=== PATIENT | male | born 1970 | race African-American/Black ===

== ENCOUNTER 2018-02-06 11:23 | Emergency (ER) | payer MEDICAID ==
[~2018-02-06] VITALS: Ht 188 cm; Wt 149.7 kg
[2018-02-06 11:46] VITALS: BP 130/79
[2018-02-06] MEDS ORDERED: GEODON20 MG ORAL (11:52)
[2018-02-06] MEDS ORDERED: WELLBUTRIN XL150 MG ORAL (11:53)
[2018-02-06] MEDS ORDERED: Aspirin Baby 81mg ORAL ONE (14:00)
[2018-02-06] MEDS ORDERED: Lidocaine 1% Plain 30 ml INJ ONE (14:43)
[2018-02-06] MEDS ORDERED: Lidocaine 1% MPF 10mg/ml 5ml INJ ONE (15:15)
[2018-02-06 15:18] VITALS: BP 133/72
[2018-02-06] MEDS ORDERED: Vancomycin 1 GM in NS 275 ML IVPB ONE (15:30)
[2018-02-06] MEDS ORDERED: Vancomycin 1.5gm/D5W 250ml 250 ML IVPB ONE (15:30)
--- NOTE | 2018-02-06 15:42 | Emergency Room Report ---
History of Present Illness General Chief Complaint: Skin Rash/Abscess Source: Patient, Medical Record Present Illness HPI The patient states that he noticed an area of swelling on his left lower leg. He states that he noted some swelling there about 3 days ago. He states that the area has enlarged. He has had subjective fever and chills. He denies nausea or vomiting. He believes that he was bitten by an insect in this location. He has no other complaints. Allergies: Coded Allergies: No Known Allergies (Unverified , 02/06/18) Patient History Past Medical History: see triage record, HTN Social History: Denies: smoking, alcohol use, drug use Reviewed Nursing Documentation: PMH: Agreed; PSxH: Agreed Nursing Documentation-PMH Past Medical History: No History, Except For Hx Hypertension: Yes Review of Systems All Other Systems: negative except mentioned in HPI Physical Exam Vital Signs Date Time Temp Pulse Resp B/P (MAP) Pulse Ox O2 Delivery O2 Flow Rate FiO2 02/06/18 11:39 99.4 101 18 130/79 95 Room Air 99.3 Sp02 EP Interpretation: reviewed, normal General Appearance: no apparent distress, alert, GCS 15, non-toxic Head: normocephalic, atraumatic Eyes: bilateral eye normal inspection, bilateral eye PERRL ENT: hearing grossly normal, normal pharynx, no angioedema, normal voice Neck: full range of motion, supple/symm/no masses Respiratory: chest non-tender, lungs clear, normal breath sounds, speaking full sentences Cardiovascular #1: no edema, tachycardia Gastrointestinal: normal bowel sounds, non tender, soft, non-distended, no guarding, no rebound Rectal: deferred Musculoskeletal: back normal, gait/station normal, normal range of motion, non- tender Neurologic: alert, oriented x3, responsive, motor strength/tone normal, sensory intact, speech normal Psychiatric: judgement/insight normal, memory normal, mood/affect normal, no suicidal/homicidal ideation Skin: warm/dry, well hydrated, other - Quarter-sized area on LLE with fluctuance. Procedures Incision and Drainage Incision and Drainage : Consent: Verbal Site: LLE Blade Size: 11 I & D Procedure: betadine prep, sterile drapes applied Wound Location: lower extremity Wound Length (cm): 0 Anesthesia: 1% Lidocaine Volume Anesthetic (ccs): 5 Patient Tolerated: Well Complications: None Progress Purulent discharged obtained. Medical Decision Making Diagnostic Impression: Primary Impression: Abscess Additional Impressions: Cellulitis Fever ER Course Patient presented with abscess on his left lower extremity. I did do an incision and drainage and obtain purulent discharge. The patient developed a fever in the emergency department. I felt that given the fever and the infection on the left lower extremity and the patient's severe chronic lymphedema, I'm concerned that this patient could do poorly on outpatient oral antibiotic therapy; Therefore, I felt that this patient should be admitted for IV antibiotics. He is given IV antibiotics here in the emergency department and admitted for further evaluation and treatment. Laboratory Tests Test 02/06/18 15:30 White Blood Count 14.6 K/UL (4.8-10.8) H Red Blood Count 3.80 M/UL (4.70-6.10) L Hemoglobin 9.9 G/DL (14.2-18.0) L Hematocrit 31.1 % (42.0-52.0) L Mean Corpuscular Volume 82 FL (80-99) Mean Corpuscular Hemoglobin 26.1 PG (27.0-31.0) L Mean Corpuscular Hemoglobin Concent 31.9 G/DL (32.0-36.0) L Red Cell Distribution Width 13.3 % (11.6-14.8) Platelet Count 505 K/UL (150-450) H Mean Platelet Volume 6.3 FL (6.5-10.1) L Neutrophils (%) (Auto) 81.2 % (45.0-75.0) H Lymphocytes (%) (Auto) 9.8 % (20.0-45.0) L Monocytes (%) (Auto) 6.5 % (1.0-10.0) Eosinophils (%) (Auto) 0.9 % (0.0-3.0) Basophils (%) (Auto) 1.6 % (0.0-2.0) Sodium Level 136 MMOL/L (136-145) Potassium Level 3.9 MMOL/L (3.5-5.1) Chloride Level 100 MMOL/L (98-107) Carbon Dioxide Level 27 MMOL/L (21-32) Anion Gap 9 mmol/L (5-15) Blood Urea Nitrogen 10 mg/dL (7-18) Creatinine 1.1 MG/DL (0.55-1.30) Estimate Glomerular Filtration Rate > 60 mL/min (>60) Glucose Level 110 MG/DL (74-106) H Lactic Acid Level 1.30 mmol/L (0.4-2.0) Calcium Level 8.1 MG/DL (8.5-10.1) L Total Bilirubin 0.5 MG/DL (0.2-1.0) Aspartate Amino Transferase (AST) 20 U/L (15-37) Alanine Aminotransferase (ALT) 29 U/L (12-78) Alkaline Phosphatase 74 U/L (46-116) Creatine Kinase MB 0.7 NG/ML (0.0-3.6) Total Protein 7.8 G/DL (6.4-8.2) Albumin 2.2 G/DL (3.4-5.0) L Globulin 5.6 g/dL Albumin/Globulin Ratio 0.4 (1.0-2.7) L Last Vital Signs Date Time Temp Pulse Resp B/P (MAP) Pulse Ox O2 Delivery O2 Flow Rate FiO2 02/06/18 11:46 99.3 18 130/79 95 Room Air 99.3 02/06/18 11:39 101 Disposition: XFER SHT-TRM HOSP Condition: Serious Referrals: [facility],REFERR[facility] (PCP) Nadia Beltran DO Feb 06, 2018 15:42
[2018-02-06 16:06] LABS: ANION GAP 9 mmol/L (5-15); BLOOD UREA NITROGEN 10 mg/dL (7-18); CALCIUM 8.1 MG/DL (8.5-10.1); CARBON DIOXIDE 27 MMOL/L (21-32); CHLORIDE 100 MMOL/L (98-107); CREATININE 1.1 MG/DL (0.55-1.30); POTASSIUM 3.9 MMOL/L (3.5-5.1); SODIUM 136 MMOL/L (136-145)
[2018-02-06 16:07] LABS: BASOPHILS % (AUTO) 1.6 % (0.0-2.0); EOSINOPHILS % (AUTO) 0.9 % (0.0-3.0); HEMATOCRIT 31.1 % (42.0-52.0); HEMOGLOBIN 9.9 G/DL (14.2-18.0); LYMPHOCYTES % (AUTO) 9.8 % (20.0-45.0); MEAN CORPUSCULAR VOLUME 82 FL (80-99); MONOCYTES % (AUTO) 6.5 % (1.0-10.0); NEUTROPHILS % (AUTO) 81.2 % (45.0-75.0); PLATELET COUNT 505 K/UL (150-450); RED CELL DISTRIBUTION WIDTH 13.3 % (11.6-14.8); WHITE BLOOD COUNT 14.6 K/UL (4.8-10.8)
[2018-02-06 16:21] LABS: ALANINE AMINOTRANSFERASE 29 U/L (12-78); ALBUMIN 2.2 G/DL (3.4-5.0); ALBUMIN/GLOBULIN RATIO 0.4 (1.0-2.7); ALKALINE PHOSPHATASE 74 U/L (46-116); ASPARTATE AMINO TRANSFERASE 20 U/L (15-37); BILIRUBIN,TOTAL 0.5 MG/DL (0.2-1.0); CKMB 0.7 NG/ML (0.0-3.6)
[2018-02-06] MEDS ORDERED: Acetaminophen 500mg (ES) tab ORAL ONE (16:45)
--- NOTE | 2018-02-06 16:56 | Emergency Room Report ---
History of Present Illness General Chief Complaint: Skin Rash/Abscess Source: Patient, Medical Record Present Illness Allergies: Coded Allergies: No Known Allergies (Unverified , 02/06/18) Nursing Documentation-[facility] Past Medical History: No History, Except For Hx Hypertension: Yes Physical Exam Vital Signs Date Time Temp Pulse Resp B/P (MAP) Pulse Ox O2 Delivery O2 Flow Rate FiO2 02/06/18 11:39 99.4 101 18 130/79 95 Room Air 99.3 Medical Decision Making Last Vital Signs Date Time Temp Pulse Resp B/P (MAP) Pulse Ox O2 Delivery O2 Flow Rate FiO2 02/06/18 16:38 101.5 02/06/18 11:46 18 130/79 95 Room Air 02/06/18 11:39 101 Signed Out To: Dr. Hicks accepted transfer to [facility] [place] Referrals: [facility]ERR[facility] (PCP) MADONNA WEST M.D Feb 06, 2018 16:56
[2018-02-06 19:12] VITALS: BP 153/80
[2018-02-06 19:51] VITALS: BP 153/80
== END 2018-02-06 19:51 | disposition short-term general hospital (02) ==
LOC: EMR 12:41
DX: L02.416 Cutaneous abscess of left lower limb (principal); L03.116 Cellulitis of left lower limb; I10 Essential (primary) hypertension
CPT/HCPCS: 10060; 36415; 80053; 82553; 83605; 85025; 87040; 96360; 96365; 96366; 96372; 99285; J0690; J2001; J3370